=== PATIENT | female | born 1990 | race African-American/Black ===

== ENCOUNTER 2023-08-31 11:01 | Emergency (ER) | payer MEDICAID, SELFPAY ==
[2023-08-31 11:05] VITALS: BP 141/87; PULSE 74; RESP 16; TEMP 36.1; O2SAT 98; BMI 45.7
--- NOTE | 2023-08-31 11:26 | ED_ITS ---
HPI - General Adult General Chief complaint: Dental/Oral/Mouth Injury/Pain Stated complaint: bleeding from mouth - tooth Time Seen by Provider: 08/31/23 11:07 Source: patient Mode of arrival: ambulatory Limitations: no limitations History of Present Illness HPI narrative: 33-year-old female coming in today concerned about bleeding from 1 of her teeth. She denies any pain, trauma. She denies any swelling of her mouth cheeks. Has not been to the dentist yet. Related Data Home Medications ?Medication ?Instructions ?Recorded ?Confirmed No Known Home Medications 08/31/23 08/31/23 Allergies Allergy/AdvReac Type Severity Reaction Status Date / Time No Known Drug Allergies Allergy Verified 08/31/23 11:10 Review of Systems Status of ROS: Reports: 6 or more systems reviewed and unremarkable except as noted in History and below PFSH [facility] Social History Smoking Status: Current every day smoker What tobacco products do you use: cigarettes Do you use any of these nicotine containing products: None Second hand tobacco smoke exposure: Yes How often do you have a drink containing alcohol: 2-3 times a week How many standard drinks containing alcohol do you have on a typical day: 1 or 2 How often do you have six or more drinks on one occasion: Never AUDIT-C Alcohol total score: 3 Non-prescribed substance use: marijuana (any form) Exam Narrative: Exam Narrative: Overweight, well-developed patient in no acute distress. Alert and oriented. Answers questions appropriately. Mood and affect are appropriate. Thoughts are goal oriented and rational. No tangential or magical thinking noted. Patient speaks in full sentences without needing to catch her breath. HEENT: Normocephalic atraumatic. Moist mucous membranes. Posterior pharynx is normal. Neck is soft without any lymphadenopathy or thyromegaly. No swelling of the cheeks her jaw. No tenderness to palpation of the jaw or neck. Lower left wisdom tooth appears to be quite lose and ready to fall off. There is no active bleeding noted. There is no gum swelling or irritation noted no erythema or other evidence of infection. Skin: Well perfused without any obvious rashes. Const: Vital Signs, click to edit/add: Vital Signs - 24 hr 08/31/23 11:05 Temperature 97.0 F L Pulse Rate [Pulse Oximeter] 74 Respiratory Rate 16 Blood Pressure [Ri ght Forearm] 141/87 H Pulse Oximetry 98 Oxygen Delivery Me thod Room Air Course Vital Signs Vital signs: Initial Vital Signs Temperature 97.0 F L 08/31/23 11:05 Temperature Source Temporal Artery Scan 08/31/23 11:05 Pulse Rate 74 08/31/23 11:05 Respiratory Rate 16 08/31/23 11:05 Blood Pressure 141/87 H 08/31/23 11:05 Blood Pressure Mean 105 08/31/23 11:05 Blood Pressure Position Sitting 08/31/23 11:05 Pulse Oximetry 98 08/31/23 11:05 Oxygen Delivery Method Room Air 08/31/23 11:05 Vital Signs Temperature 97.0 F L 08/31/23 11:05 Pulse Rate 74 08/31/23 11:05 Respiratory Rate 16 08/31/23 11:05 Blood Pressure 141/87 H 08/31/23 11:05 Pulse Oximetry 98 08/31/23 11:05 Oxygen Delivery Method Room Air 08/31/23 11:05 Temperature 97.0 F L 08/31/23 11:05 Pulse Rate 74 08/31/23 11:05 Respiratory Rate 16 08/31/23 11:05 Blood Pressure 141/87 H 08/31/23 11:05 Pulse Oximetry 98 08/31/23 11:05 Oxygen Delivery Method Room Air 08/31/23 11:05 Medical Decision Making MDM Narrative Medical decision making narrative: Loose wisdom tooth. Recommend follow-up with dentist. Discharge Plan Discharge Clinical Impression: Loosening of tooth Patient Disposition: Home, Self-Care Condition: Stable Additional Instructions: Follow-up with dentist. Prescriptions: No Action No Known Home Medications Follow Up/Referrals: Pallavi Sullivan PA-C [Primary Care Provider] - Stand Alone Forms: MyHealth Info Instructions
== END 2023-08-31 11:33 | disposition home or self-care (01) ==
LOC: ED 11:33
PROVIDERS: Emergency Provider Family Medicine; PCP Physician Assistant Medical
DX: K08.89 Other specified disorders of teeth and supporting structures (principal)
CPT/HCPCS: 99282; 99283

== ENCOUNTER 2024-03-07 19:46 | Emergency (ER) | payer OTHER, SELFPAY ==
--- OUTSIDE RECORDS SUMMARY | 2024-03-07 19:48 | XMS_ITS | Clinical Summary ---
Author Organization [facility] Address [address] [place] [address] Care Team Providers Care Rope Tow Operator Name Role Phone Unavailable Primary Care Provider Unavailabl e Allergies No known active allergies Medications albuterol HFA 90mcg/puff (PROVENTIL;VENT BOBO HFA) 90 mcg/actuation Inhl 2 Puffs by Inhalation route every 4 (four) hours as needed for Shortness of breath or Wheezing. 8 g 6 Active lidocaine (XYLOCAINE) 5 % Top Oint Apply 1 Application to skin as needed. 60 g 6 Active desmopressin (DDAVP) 0.2 mg oral tablet Take 0.4 mg in the morning and 0.4 mg at bedtime. 8 Active Cabergoline 0.5 mg oral tablet Take 1 tablet by mouth every Sunday and . 8 Active levETIRAcetam (KEPPRA) 500 mg oral tablet 0 8 Active levothyroxine (SYNTHROID) 200 mcg oral tablet Take 1 tablet by mouth before breakfast. 8 Active TRI-SPRINTEC, 28, 0.18/0.215/0.25 mg-35 mcg (28) oral tablet 5 8 Active ondansetron (ZOFRAN ODT) 4 mg oral ODT Dissolve 1 tablet (4 mg) in mouth every 8 (eight) hours as needed for nausea. 10 tablet 8 Active meclizine (ANTIVERT) 25 mg oral tablet Take 1 tablet (25 mg) by mouth three times a day as needed. 30 tablet 8 Active Active Problems Problem Noted Date Diagnosed Date Suicidal ideation 06/25/2015 Acute right otitis media 06/25/2015 Severe episode of recurrent major depressive disorder, without psychotic features 06/25/2015 Marijuana abuse, continuous 06/25/2015 Family History Medical History Relation Comments Depression Mother Relation Status Comments Mother Social History Tobacco Use Types Packs/Day Years Used Date Smoking Tobacco: Some Days Smokeless Tobacco: Never Comments:smokes socially Alcohol Use Standard Drinks/Week Comments Yes 0 (1 standard drink = 0.6 oz pur e alcohol) Comments Unknown Sex and Gender Information Value Date Recorded Sex Assigned at Not on file Legal Sex Female 10:05 PM CDT Gender Identity Not on file Sexual Orientation Not on file Last Filed Vital Signs Vital Sign Reading Time Taken Comments Blood Pressure 128/75 09/29/2020 7:55 AM CDT Pulse 75 09/29/2020 7:55 AM CDT Temperature 36.7 C (98 F) 09/29/2020 7:55 AM CDT Respiratory Rate 18 09/29/2020 7:55 AM CDT Oxygen Saturation 97% 09/29/2020 7:55 AM CDT Inhaled Oxygen Concentration - - Weight 135.4 kg (298 lb 8 oz) 06/25/2015 12:56 A M CDT Height 160 cm (5' 3) 06/25/2015 12:56 AM CDT Body Mass Index 52.88 06/25/2015 12:56 AM CDT Plan of Treatment Health Maintenance Due Date Last Done Comments Hepatitis C Screening 1992 Pap Smear 1992 Anxiety Screening (HEIKE-2) 1993 Depression Follow-Up (PHQ-9) 1993 Adult Tetanus Booster 09/13/2014 09/13/2004 , 09/13/2004 COVID-19 Vaccine (2023-2 5 season) 2023 Influenza Vaccine (#1) 2023 9, 01/15/2007 RSV Vaccines (1 - 1-dose 75+ series) 2067 Pneumococcal <65 Aged Out No longer e ligible based on patient's age to complete this topic
--- OUTSIDE RECORDS SUMMARY | 2024-03-07 19:48 | XMS_ITS | Referral Summary ---
Author Organization [facility] Address [address] [place] [address] Care Team Providers Care Boiling Off Winder Name Role Phone Unavailable Primary Care Provider [...] psychotic features 06/25/2015 Marijuana abuse, continuous 06/25/2015 Social History Tobacco Use Types Packs/Day Years [...] 06/25/2015 12:56 AM CDT Plan of Treatment Not on file
[2024-03-07 19:52] VITALS: BP 125/87; PULSE 62; RESP 16; TEMP 35.7; O2SAT 99; BMI 43.4
--- NOTE | 2024-03-07 20:26 | ED_ITS ---
HPI - General Adult General Chief complaint: Laceration/Wound Stated complaint: Cut index finger om left hand Time Seen by Provider: 03/07/24 20:00 Source: patient Mode of arrival: ambulatory Limitations: no limitations History of Present Illness HPI narrative: 33-year-old female presents the emergency department for evaluation of cut to her left index finger, laterally along the PIP edge. No difficulty with mov ement or sensation. Mild bleeding but has stopped with pressure. Flap type shape. Last tetanus 09/01/2014. No anticoagulants. No recent illness, no other areas of injury. Reports benign past medical history, no home meds. ROS is negative for other generalized, musculoskeletal, skin or neurological changes. Related Data Home Medications ?Medication ?Instructions ?Recorded ?Confirmed No Known Home Medications 08/31/23 08/31/23 Allergies Allergy/AdvReac Type Severity Reaction Status Date / Time No Known Drug Allergies Allergy Verified 08/31/23 11:10 [facility] Social History Smoking Status: Current every day smoker What tobacco products do you use: cigarettes Do you use any of these nicotine containing products: None Second hand tobacco smoke exposure: Yes How often do you have a drink containing alcohol: 2-3 times a week How many standard drinks containing alcohol do you have on a typical day: 1 or 2 How often do you have six or more drinks on one occasion: Never AUDIT-C Alcohol total score: 3 Non-prescribed substance use: marijuana (any form) Exam Const: Vital Signs, click to edit/add: Vital Signs - 24 hr 03/07/24 19:52 Temperature 96.3 F L Pulse Rate [Right Pulse Oximeter] 62 Respiratory Rate 16 Blood Pressure [Ri ght Upper Arm] 125/87 Pulse Oximetry 99 Oxygen Delivery Me thod Room Air Documenting provider has reviewed patient's vital signs: yes Common normals: no apparent distress General appearance: cooperative and well kempt HENMT: Common normals: normocephalic Head and scalp: normocephalic Face and sinus: normal facial exam Resp: Common normals: normal respiratory effort Effort & inspection: able to speak in complete sentences Cardio: Other: Normal radial pulses on left side and normal capillary refill of fingers. Extremity: Other: Left hand and wrist examined. Wrist with normal range of motion. Hand with normal range of motion and strength. Normal flexion, extension, abduction and adduction of finger 2. Which is the finger in question. A 1 cm by 1 cm curvilinear flap type laceration along the PIP lateral edge of the 2nd left finger slight oozing at the corners, stops with gentle pressure. Normal nail, no other areas of injury. Psych: Appearance: well kempt Attitude: engaged Mood and affect: euthymic mood Attention/concentration: attention grossly intact Course Course ED Course: Small superficial laceration of the left 2nd finger with no signs of nerve, tendon or vascular injury. Counseled patient that because of the location it will keep splitting open and is likely to rebleed without intervention. Dermabond recommended. Rationale discussed. Procedure: Properly examined no signs of foreign body or neurovascular injury. Dermabond applied in 2 layers in typical fashion with good hemostasis and cosmetic repair. Counseled on wound care, written instructions provided. Alarm symptoms reviewed that warrant ED presentation. Tetanus confirmed up-to-date. Will discharge home Vital Signs Vital signs: Initial Vital Signs Temperature 96.3 F L 03/07/24 19:52 Temperature Source Temporal Artery Scan 03/07/24 19:52 Pulse Rate 62 03/07/24 19:52 Respiratory Rate 16 03/07/24 19:52 Blood Pressure 125/87 03/07/24 19:52 Blood Pressure Mean 99 03/07/24 19:52 Blood Pressure Position Sitting 03/07/24 19:52 Pulse Oximetry 99 03/07/24 19:52 Oxygen Delivery Method Room Air 03/07/24 19:52 Vital Signs Temperature 96.3 F L 03/07/24 19:52 Pulse Rate 62 03/07/24 19:52 Respiratory Rate 16 03/07/24 19:52 Blood Pressure 125/87 03/07/24 19:52 Pulse Oximetry 99 03/07/24 19:52 Oxygen Delivery Method Room Air 03/07/24 19:52 Temperature 96.3 F L 03/07/24 19:52 Pulse Rate 62 03/07/24 19:52 Respiratory Rate 16 03/07/24 19:52 Blood Pressure 125/87 03/07/24 19:52 Pulse Oximetry 99 03/07/24 19:52 Oxygen Delivery Method Room Air 03/07/24 19:52 Discharge Plan Discharge Clinical Impression: Finger laceration Patient Disposition: Home w/ Parent or Adult Condition: Improved Instructions: Skin Adhesive Care (ED) Additional Instructions: As we discussed, there does not seem to be any sign of tendon, nerve or blood vessel injury with the cut on your finger. This should heal without complication. I applied a special type of skin glue that will keep the injured edges of the skin together and allow it to heal more quickly. This will also reduce her chance of infection. It can get wet but try to avoid aggressive scrubbing, picking or prolonged soaking in water. A little bit of numbness in the finger is normal but you should have the ability to move the finger. It may feel a little tight around the cut because of the glue but this will be temporary. The glue will flake off on its own starting in a few days. Do not apply any lotions, ointments or other topical products to the glue, as this will loosen it prematurely. It is okay to use Tylenol 1000 mg every 6 hours and or ibuprofen 600 mg every 6 hours as needed for mild discomfort. It is okay to use Benadryl and or melatonin to help with sleep. Any severe signs of infection or significant neurological change would warrant re-evaluation in the emergency room. Otherwise this really should heal without any significant complication. Your last tetanus shot was 09/01/14 and does not need to be updated today. Activity Level: Activity as Tolerated Discharge Diet: Regular Prescriptions: No Action No Known Home Medications Follow Up/Referrals: Pallavi Sullivan PA-C [Primary Care Provider] - Stand Alone Forms: MyHealth Info Instructions
--- OUTSIDE RECORDS SUMMARY | 2024-03-07 20:40 | XMS_ITS | Clinical Summary ---
Author Organization [facility] Address [address] [place] [address] Care Team Providers Care Jewelsmith Name Role Phone Unavailable Primary Care Provider [...]
--- OUTSIDE RECORDS SUMMARY | 2024-03-07 20:40 | XMS_ITS | Referral Summary ---
Author Organization [facility] Address [address] [place] [address] Care Team Providers Care Consultant Name Role Phone Unavailable Primary Care Provider [...]
== END 2024-03-07 20:41 | disposition home or self-care (01) ==
LOC: ED 20:39
PROVIDERS: Emergency Provider Family Medicine; PCP Physician Assistant Medical
DX: S61.211A Laceration without foreign body of left index finger without damage to nail, initial encounter (principal); W45.8XXA Other foreign body or object entering through skin, initial encounter
CPT/HCPCS: 12001; 99282